=== PATIENT | male | born 1935 | race African-American/Black ===

== ENCOUNTER 2022-09-11 01:29 | Inpatient (IN) | payer OTHER ==
[~2022-09-11] VITALS: Ht 177.8 cm; Wt 123.4 kg
[~2022-09-11 01:29] MED LIST: COUMADIN; FLOMAX
[2022-09-11] MEDS ORDERED: IPRATROPIUM/ALBUTEROL 0.5-3(2.5)MG/3ML NEB HHN ONE (02:15)
[2022-09-11] MEDS ORDERED: DEXAMETHASONE 4MG TABLET PO ONE (02:15)
[2022-09-11 02:31] LABS: CHLORIDE 109 mEq/L (98-107)
[2022-09-11 02:46] LABS: BASOPHILS % 0.6 % (0.0-2.0); EOSINOPHILS % 10.7 % (0.0-5.0); HEMATOCRIT. 42.6 % (42.0-52.0); LYMPHOCYTES % 12.8 % (20.0-50.0); MEAN CORPUSCULAR HEMOGLOBIN 32.2 pg (28.0-32.0); MEAN CORPUSCULAR VOLUME 97.7 fL (80.0-94.0); MEAN PLATELET VOLUME 7.4 fl (7.4-10.4); MONOCYTES % 8.8 % (2.0-8.0); NEUTROPHILS % 67.1 % (40.0-76.0); PLATELET 168 x1000/uL (130-400); RED BLOOD CELL COUNT 4.36 mill/uL (4.7-6.1); RED CELL DISTRIBUTION WIDTH 14.4 % (11.6-14.6)
[2022-09-11] MEDS: IPRATROPIUM BROMIDE (0.02%) 0.5MG/2.5ML NEB HHN SCH ×2 (03:08→21:16)
[2022-09-11] MEDS ORDERED: IPRATROPIUM BROMIDE (0.02%) 0.5MG/2.5ML NEB HHN PRN (04:45)
[2022-09-11] MEDS ORDERED: IPRATROPIUM BROMIDE (0.02%) 0.5MG/2.5ML NEB HHN NR (04:45)
[2022-09-11] MEDS ORDERED: ALBUTEROL (0.083%) 2.5MG/3ML NEB HHN NR (04:45)
[2022-09-11 06:51] LABS: BG BASE EXCESS -2.9 mmol/L (-2.0-2.0); BG CARBOXYHEMOGLOBIN 0.7 % (0.5-1.5); BG DEOXYHEMOGLOBIN 6.5 % (0.0-5.0); BG FRACTION INSPIRED OXYGEN 21; BG HCO3 ACT 22.5 mmol/L (22.0-26.0); BG METHEMOGLOBIN 0.1 % (0.0-1.5); BG OXYGEN SATURATION 93.4 % (92.0-98.5); BG OXYHEMOGLOBIN 92.7 % (94.0-97.0); BG PCO2 41.6 mmHg (35.0-45.0); BG PH 7.351 (7.350-7.450); BG PO2 70.2 mmHg (75.0-100.0); BG TOTAL HEMOGLOBIN 14.3 g/dL (12.0-18.0); BG VENT MODE ROOM AIR
[2022-09-11] MEDS ORDERED: FUROSEMIDE 40MG/4ML VIAL IVP SCH (09:00)
[2022-09-11 10:01] VITALS: BP 173/86
[2022-09-11] MEDS ORDERED: P50 PO (10:18)
[2022-09-11] MEDS ORDERED: LOSA50TA41 PO (10:18)
[2022-09-11] MEDS: AMLODIPINE 10MG TABLET PO SCH (10:54)
[2022-09-11] MEDS: PREDNISONE 20MG TABLET PO SCH ×2 (10:54→17:05)
[2022-09-11] MEDS: CLONIDINE 0.1MG TABLET PO PRN (10:54)
[2022-09-11] MEDS: ENOXAPARIN 40MG/0.4ML SYR SUBCUT SCH (10:55)
[2022-09-11] MEDS: GUAIFENESIN 600MG ER TABLET PO SCH ×2 (10:55→20:46)
[2022-09-11 12:00] VITALS: BP 155/70
[2022-09-11 16:00] VITALS: BP 143/70
[2022-09-11 20:00] VITALS: BP 136/66
[2022-09-11] MEDS: FAMOTIDINE 20MG TABLET PO SCH (20:46)
[2022-09-11] MEDS: ALBUTEROL (0.083%) 2.5MG/3ML NEB HHN SCH (21:16)
[2022-09-12] VITALS (7 sets, daily range): BP systolic 118–183; BP diastolic 62–82
[2022-09-12] MEDS: ALBUTEROL (0.083%) 2.5MG/3ML NEB HHN SCH ×5 (03:10→20:18)
[2022-09-12] MEDS: AMLODIPINE 10MG TABLET PO SCH (08:33)
[2022-09-12] MEDS: ENOXAPARIN 40MG/0.4ML SYR SUBCUT SCH (08:33)
[2022-09-12] MEDS: PREDNISONE 20MG TABLET PO SCH ×2 (08:33→17:40)
[2022-09-12] MEDS: GUAIFENESIN 600MG ER TABLET PO SCH ×2 (08:33→20:21)
[2022-09-12] MEDS: IPRATROPIUM BROMIDE (0.02%) 0.5MG/2.5ML NEB HHN SCH ×3 (09:01→20:18)
[2022-09-12 16:08] LABS: BASOPHILS % 0.2 % (0.0-2.0); HEMATOCRIT. 42.6 % (42.0-52.0); HEMOGLOBIN. 13.7 g/dL (14.0-18.0); MEAN CORPUSCULAR HEMOGLOBIN 31.7 pg (28.0-32.0); MEAN CORPUSCULAR VOLUME 98.8 fL (80.0-94.0); MEAN PLATELET VOLUME 7.6 fl (7.4-10.4); MONOCYTES % 3.2 % (2.0-8.0); NEUTROPHILS % 93.6 % (40.0-76.0); PLATELET 174 x1000/uL (130-400); RED BLOOD CELL COUNT 4.32 mill/uL (4.7-6.1); RED CELL DISTRIBUTION WIDTH 14.2 % (11.6-14.6)
[2022-09-12] MEDS: FAMOTIDINE 20MG TABLET PO SCH (20:21)
[2022-09-12 20:23] LABS: CLARITY URINE CLEAR (CLEAR); COLOR URINE YELLOW (YELLOW); KETONES URINE NEGATIVE (NEGATIVE); LEUKOCYTE ESTERASE URINE NEGATIVE (NEGATIVE); NITRITE URINE NEGATIVE (NEGATIVE); OCCULT BLOOD URINE NEGATIVE (NEGATIVE); PROTEIN URINE 1+ (NEGATIVE); SPECIFIC GRAVITY URINE 1.014 (1.005-1.030); UROBILINOGEN URINE 0.2 E.U./dL (0.2-1.0)
[2022-09-12] MEDS: CLONIDINE 0.1MG TABLET PO PRN (20:56)
[2022-09-13] VITALS: BP 148/71
[2022-09-13] MEDS: ALBUTEROL (0.083%) 2.5MG/3ML NEB HHN SCH ×4 (01:52→20:15)
[2022-09-13] MEDS: IPRATROPIUM BROMIDE (0.02%) 0.5MG/2.5ML NEB HHN SCH ×4 (01:52→20:15)
[2022-09-13 04:00] VITALS: BP 142/63
[2022-09-13 08:04] VITALS: BP 142/64
[2022-09-13] MEDS: PREDNISONE 20MG TABLET PO SCH ×2 (08:33→17:16)
[2022-09-13] MEDS: GUAIFENESIN 600MG ER TABLET PO SCH ×2 (08:33→20:29)
[2022-09-13] MEDS: ENOXAPARIN 40MG/0.4ML SYR SUBCUT SCH (08:34)
[2022-09-13] MEDS: AMLODIPINE 10MG TABLET PO SCH (08:34)
[2022-09-13] MEDS ORDERED: FUROSEMIDE 40MG TABLET PO SCH ×2 (09:00→12:14)
[2022-09-13 12:07] VITALS: BP 126/66
[2022-09-13] MEDS ORDERED: P20 PO (12:23)
[2022-09-13] MEDS ORDERED: P20 MT (12:24)
[2022-09-13] MEDS ORDERED: FURO-151 MT (12:24)
[2022-09-13] MEDS: FUROSEMIDE 40MG/4ML VIAL IVP SCH ×2 (14:44→17:16)
[2022-09-13 16:14] VITALS: BP 157/75
[2022-09-13 20:00] VITALS: BP 125/68
[2022-09-13] MEDS: FAMOTIDINE 20MG TABLET PO SCH (20:29)
[2022-09-14] VITALS: BP 150/57
[2022-09-14] MEDS: ALBUTEROL (0.083%) 2.5MG/3ML NEB HHN SCH ×3 (01:38→13:59)
[2022-09-14] MEDS: IPRATROPIUM BROMIDE (0.02%) 0.5MG/2.5ML NEB HHN SCH ×3 (01:38→13:59)
[2022-09-14 03:55] VITALS: BP 112/55
[2022-09-14 08:00] VITALS: BP 140/81
[2022-09-14] MEDS: ENOXAPARIN 40MG/0.4ML SYR SUBCUT SCH (08:50)
[2022-09-14] MEDS: FUROSEMIDE 40MG/4ML VIAL IVP SCH (08:50)
[2022-09-14] MEDS: AMLODIPINE 10MG TABLET PO SCH (08:50)
[2022-09-14] MEDS: PREDNISONE 20MG TABLET PO SCH (08:50)
[2022-09-14] MEDS: GUAIFENESIN 600MG ER TABLET PO SCH (08:50)
[2022-09-14 11:54] VITALS: BP 140/78
[2022-09-14 16:00] VITALS: BP 142/72
[2022-09-14 16:50] VITALS: BP 142/72
== END 2022-09-14 18:51 | disposition home or self-care (01) | DRG 280 ==
LOC: ER 01:29 → 7WST 04:39
PROVIDERS: ADMIT Internal Medicine; ATTEND Internal Medicine
DX: I13.0 Hypertensive heart and chronic kidney disease with heart failure and stage 1 through stage 4 chronic kidney disease, or unspecified chronic kidney disease (principal); I21.4 Non-ST elevation (NSTEMI) myocardial infarction; I50.33 Acute on chronic diastolic (congestive) heart failure; J96.00 Acute respiratory failure, unspecified whether with hypoxia or hypercapnia; J44.1 Chronic obstructive pulmonary disease with (acute) exacerbation; N17.9 Acute kidney failure, unspecified; C25.9 Malignant neoplasm of pancreas, unspecified; Z20.822 Contact with and (suspected) exposure to COVID-19; E66.9 Obesity, unspecified; N18.9 Chronic kidney disease, unspecified; N40.0 Benign prostatic hyperplasia without lower urinary tract symptoms; Z85.07 Personal history of malignant neoplasm of pancreas; Z85.46 Personal history of malignant neoplasm of prostate; Z90.5 Acquired absence of kidney; Z92.3 Personal history of irradiation; Z68.39 Body mass index [BMI] 39.0-39.9, adult
CPT/HCPCS: 36415; 36600; 71045; 80048; 80053; 81003; 82375; 82805; 83880; 84484; 85025; 87426; 93005; 93306; 94640; 97162; 99285; J1650; J1940; J7512; J8540